=== PATIENT | male | born 1970 | race Caucasian/White ===

== ENCOUNTER 2020-04-27 18:59 | Emergency (ER) | payer MEDICARE, MEDICAID ==
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
== END 2020-04-27 20:00 ==
LOC: JD.ED 18:59
DX: F10.120 Alcohol abuse with intoxication, uncomplicated (principal); R45.851 Suicidal ideations
CPT/HCPCS: 99283

== ENCOUNTER 2020-04-28 16:14 | Emergency (ER) | payer MEDICARE, MEDICAID ==
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
[2020-04-28 17:23] LABS: ACETAMINOPHEN 0 ug/mL (10-30)
== END 2020-04-28 20:10 ==
LOC: JD.ED 16:14
DX: S61.512A Laceration without foreign body of left wrist, initial encounter (principal); F10.29 Alcohol dependence with unspecified alcohol-induced disorder; F17.210 Nicotine dependence, cigarettes, uncomplicated; Z20.828 Contact with and (suspected) exposure to other viral communicable diseases; X78.1XXA Intentional self-harm by knife, initial encounter
CPT/HCPCS: 36415; 80053; 80306; 80307; 84443; 85007; 85027; 93005; 99285; U0002; 93010; 99284